=== PATIENT | male | born 1975 | race Two or more races ===

== ENCOUNTER 2016-09-15 05:58 | Emergency (ER) | payer SELFPAY ==
[~2016-09-15] VITALS: Ht 177.8 cm; Wt 86.2 kg
[2016-09-15 06:06] VITALS: BP 138/77
[2016-09-15] MEDS ORDERED: FLUORESCEIN SODIUM OPHTH 1 EA STRIP OP ONE (06:30)
[2016-09-15] MEDS ORDERED: TETRACAINE HCL/PF 0.5% UD 2 ML BOTTLE EACHEYE ONE (06:30)
[2016-09-15] MEDS ORDERED: TETRACAINE HCL/PF 0.5% UD 2 ML BOTTLE ONE (06:41)
[2016-09-15] MEDS ORDERED: FLUORESCEIN SODIUM OPHTH 1 EA STRIP ONE ×2 (06:41→06:46)
--- NOTE | 2016-09-15 06:51 | NUR ---
DR. JEREZ AT BEDSIDE FOR EVAL/ EYE EXAM
== END 2016-09-15 07:04 | disposition home or self-care (01) ==
LOC: ER 06:02
DX: H57.8 Other specified disorders of eye and adnexa (principal); F17.200 Nicotine dependence, unspecified, uncomplicated
CPT/HCPCS: A4606; Z7610

== ENCOUNTER 2020-11-04 19:09 | Emergency (ER) | payer BC ==
[~2020-11-04] VITALS: Ht 177.8 cm; Wt 102.1 kg
[2020-11-04 19:35] LABS: BASOPHILS # (AUTO) 0.1 K/uL (0.0-0.2); BASOPHILS % (AUTO) 0.7 % (0.0-2.0); EOSINOPHILS % (AUTO) 2.8 % (0.0-6.0); HEMATOCRIT 45 % (39-51); HEMOGLOBIN 15.3 g/dL (13.5-17.5); LYMPHOCYTES # (AUTO) 2.4 K/uL (0.8-4.8); LYMPHOCYTES % (AUTO) 31.6 % (20.0-44.0); MEAN CORPUSCULAR HGB CONC 34 g/dl (31.0-36.0); MEAN CORPUSCULAR VOLUME 91 fL (80-96); MONOCYTES # (AUTO) 0.5 K/uL (0.1-1.30); MONOCYTES % (AUTO) 6.1 % (2.0-12.0); NEUTROPHILS # (AUTO) 4.5 K/uL (1.8-8.9); NEUTROPHILS % (AUTO) 58.8 % (43.0-81.0); PLATELET COUNT (AUTO) 257 K/uL (150-450); RED BLOOD CELL COUNT(AUTO) 4.91 MIL/uL (4.5-6.0); WHITE BLOOD COUNT (AUTO) 7.7 K/uL (4.3-11.0)
[2020-11-04 19:49] LABS: BILIRUBIN,URINE SMALL (NEGATIVE); COLOR,URINE YELLOW (YELLOW); LEUKOCYTE ESTERASE ,URINE Negative (NEGATIVE); NITRITE, URINE Negative (NEGATIVE); PH,URINE 5.5 (5.0-8.0); PROTEIN,URINE Negative (NEGATIVE); UGLUCOSE Negative (NEGATIVE); UROBILINOGEN,URINE 0.2 EU/dL (0.2)
[2020-11-04 19:51] LABS: ALBUMIN 3.9 g/dL (3.4-5.0); BILIRUBIN,DIRECT 0.1 mg/dL (0.0-0.2); BILIRUBIN,TOTAL 0.4 mg/dL (0.2-1.0); CREATININE 0.9 mg/dL (0.6-1.3); POTASSIUM 3.3 mmol/L (3.5-5.1); TOTAL PROTEIN, SERUM 7.6 g/dL (6.4-8.2)
[2020-11-04 19:51] LABS: BACTERIA,URINE Rare /HPF (None Seen); SQUAMOUS EPITHELIAL CELL,UR Few /HPF (None Seen); WBC,URINE NONE SEEN /HPF (0-3)
[2020-11-04] MEDS ORDERED: KETOROLAC TROMETHAMINE INJ 30 MG/ML VIAL IM ONE (20:00)
--- NOTE | 2020-11-04 20:15 | NUR ---
PATIENT REFUSED TORADOL MEDICATION.
[2020-11-04] MEDS ORDERED: KETOROLAC TROMETHAMINE 10 MG TABLET PO STA (21:56)
[2020-11-04] MEDS ORDERED: IBUPROFEN 400 MG TABLET ONE (22:25)
[2020-11-04] MEDS ORDERED: IBUPROFEN 400 MG TABLET PO ONE (22:30)
[2020-11-04 22:48] VITALS: BP 120/80
--- NOTE | 2020-11-04 22:49 | NUR ---
Patient discharged to home in stable condition. Written and verbal after care instructions given. Patient verbalizes understanding of instruction.
== END 2020-11-04 22:49 | disposition home or self-care (01) ==
LOC: ER 19:13
DX: R07.89 Other chest pain (principal); F17.200 Nicotine dependence, unspecified, uncomplicated
CPT/HCPCS: 36415; 71045-TC; 80048-TC; 80076-TC; 81001; 83690-TC; 84484-TC; 85025-TC